=== PATIENT | female | born 1980 | race Caucasian/White ===

== ENCOUNTER 2016-05-24 08:35 | Emergency (ER) | payer OTHER ==
[~2016-05-24] VITALS: Wt 63.5 kg
[2016-05-24] MEDS ORDERED: ACETAMINOPHEN 500 MG TAB PO STA (09:22)
[2016-05-24 10:01] LABS: ADD SCAN DIFF NO
[2016-05-24 10:05] LABS: ADD UMIC YES; URINE BILIRUBIN (Dip) NEGATIVE (NEGATIVE); URINE BLOOD (Dip) 3+ (NEGATIVE); URINE COLOR LT. YELLOW (YELLOW); URINE GLUCOSE (Dip) NEGATIVE (NEGATIVE); URINE KETONES (Dip) NEGATIVE (NEGATIVE); URINE LEUKOCYTE ESTERASE (Dip) TRACE (NEGATIVE); URINE NITRITE (Dip) NEGATIVE (NEGATIVE); URINE TOTAL PROTEIN (Dip) TRACE (NEGATIVE); URINE UROBILINOGEN (Dip) 0.2 E.U./dL (0.1-1.0)
[2016-05-24 10:07] LABS: BASOPHILS % 0.4 % (0.0-2.0); EOSINOPHILS # 0.1 10^3/ul (0.0-0.5); EOSINOPHILS % 1.1 % (0.0-7.0); HEMOGLOBIN 14.5 g/dl (12.0-16.0); LYMPHOCYTES % 23.9 % (15.0-51.0); MEAN CORPUSCULAR HGB CONC 34.5 g/dl (32.0-37.0); MEAN CORPUSCULAR VOLUME 89.7 fl (82.0-101.0); MEAN PLATELET VOLUME 8.8 fl (7.4-10.4); MONOCYTE # 0.6 10^3/ul (0.3-0.9); MONOCYTES % 6.9 % (0.0-11.0); NEUTROPHIL # 5.6 10^3/ul (1.6-7.5); NEUTROPHILS % 67.5 % (39.0-77.0); PLATELET COUNT 413 10^3/UL (140-415); RED BLOOD COUNT 4.68 10^6/ul (4.20-5.40); RED CELL DISTRIBUTION WIDTH 12.3 % (11.5-14.5); WHITE BLOOD COUNT 8.3 10^3/ul (4.8-10.8)
--- NOTE | 2016-05-24 10:19 | ERD ---
ER Documentation Chief Complaint Date/Time DATE: 05/24/16 TIME: 10:18 Chief Complaint vag bleeding since ysterday 8 wks preg. no dysuria per pt,has mild ap HPI This is a 35-year-old female who presents to the emergency department today complaining of vaginal bleeding the past 2 days. Patient states she is approximately 9 weeks . States she has some crampy abdominal pain. Denies any fevers or chills, dysuria, nausea or vomiting. She has not taken any medication for the pain. States he has an appointment next month with her CEMETERY WARDEN. ROS All systems reviewed and are negative except as per history of present illness. Medications Home Meds Active Scripts Acetaminophen* (Tylophen*) 500 Mg Capsule, 1 CAP PO Q6H Y for PAIN AND OR ELEVATED TEMP, #30 CAP Prov:ANA MARLOW PA-C 05/24/16 PMhx/Soc Medical and Surgical Hx: pt denies Medical Hx, pt denies Surgical Hx Hx Alcohol Use: No Hx Substance Use: No Hx Tobacco Use: No Smoking Status: Never smoker Physical Exam Vitals Vital Signs Date Time Temp Pulse Resp B/P Pulse Ox O2 Delivery O2 Flow Rate FiO2 05/24/16 08:41 98.8 100 21 141/88 100 Physical Exam Const: No acute distress Head: Atraumatic Eyes: Normal Conjunctiva ENT: Normal External Ears, Nose and Mouth. Neck: Full range of motion..~ No meningismus. Resp: Clear to auscultation bilaterally Cardio: Regular rate and rhythm, no murmurs Abd: Soft, suprapubic tenderness non distended. Normal bowel sounds. No right lower quadrant pain. No left lower quadrant pain. Skin: No petechiae or rashes Back: No midline or flank tenderness Ext: No cyanosis, or edema Neur: Awake and alert Psych: Normal Mood and Affect Result Diagram: 05/24/16 0945 Results 24 hrs Laboratory Tests Test 05/24/16 09:35 05/24/16 09:45 Urine Color LT. YELLOW Urine Clarity SLIGHTLY CLOUDY Urine pH 6.0 Urine Specific [place] 1.025 Urine Ketones NEGATIVE Urine Nitrite NEGATIVE Urine Bilirubin NEGATIVE Urine Urobilinogen 0.2 E.U./dL Urine Leukocyte Esterase TRACE Urine Microscopic RBC >200/HPF Urine Microscopic WBC 5-10/HPF Urine Epithelial Cells MODERATE Urine Bacteria FEW Urine Hemoglobin 3+ Urine Glucose NEGATIVE% Urine Total Protein TRACE White Blood Count 8.310^3/ul Red Blood Count 4.6810^6/ul Hemoglobin 14.5g/dl Hematocrit 42.0% Mean Corpuscular Volume 89.7fl Mean Corpuscular Hemoglobin 31.0pg Mean Corpuscular Hemoglobin Concent 34.5g/dl Red Cell Distribution Width 12.3% Platelet Count 00319^3/UL Mean Platelet Volume 8.8fl Neutrophils % 67.5% Lymphocytes % 23.9% Monocytes % 6.9% Eosinophils % 1.1% Basophils % 0.4% Nucleated Red Blood Cells % 0.0/100WBC Neutrophils # 5.610^3/ul Lymphocytes # 2.010^3/ul Monocytes # 0.610^3/ul Eosinophils # 0.110^3/ul Basophils # 0.010^3/ul Nucleated Red Blood Cells # 0.010^3/ul Beta HCG, Quantitative 1830.2mIU/ml Current Medications Medications (Trade) Dose Ordered Sig/Matt Route PRN Reason Start Time Stop Time Status Last Admin Dose Admin Acetaminophen (Tylenol Tab) 500 mg ONCE STAT PO 05/24/16 09:22 05/24/16 09:24 DC 05/24/16 09:51 DIAGNOSTIC IMAGING REPORT Patient: MAITE PICKETT : 1980 Age: 35 Sex: F MR #: [id number] DOS: 05/24/16921 Ordering MD: ANA MARLOW PA-C Location: [facility] Room/Bed: PROCEDURE: US OB. CLINICAL INDICATION: Vaginal bleeding TECHNIQUE: Transabdominal and transvaginal views of the pelvis are available for review. COMPARISON: No prior studies are available for comparison. FINDINGS: There is a twin intrauterine gestation with the crown-rump length measuring 1.1 and 0.7 cm, corresponding to a gestational age of 7 weeks and 2 days and 6 weeks and 4 days. The heart tones are absent. There is a small amount of fluid in the lower endometrial canal. The right ovary measures 3.2 x 1.7 cm. The left ovary measures 3.3 x 2.2 cm. There is no free fluid. RPTAT: AA IMPRESSION: Twin intrauterine with an estimated gestational age of 7 weeks and 2 days and 6 weeks and 4-day, based on ultrasound measurements. No heart tones are present, suspicious for demise. A call report was made and the findings discussed with Ana Marlow Pa-c at 05/24/2016 10:30:48 AM. .Cain Moreno MD, MD Date Time Electronically viewed and signed by .Cain Moreno MD, MD on 05/24/2016 10: 32 .S/ CC: ANA MARLOW PA-C Procedures/MDM This a 35-year-old female who presents to the emergency department today for vaginal bleeding. Patient indicated she was approximately 9 weeks . She has not been seen here in this emergency department previously. Given the patient's complaints I did obtain a complete OB workup. Laboratory work shows no elevated white blood cell count. She is not anemic. Platelets are within normal limits. UA shows trace leukocyte esterase. Negative nitrites. Rh status B Positive Beta quant hCG 1830.2 Ultrasound shows twin intrauterine with an estimated gestational age of 7 weeks and 2 days and 6 weeks and 4 days based on ultrasound measurements. There are no heart tones present that are suspicious for demise. There is no free fluid. I received a call from Dr. Moreno in regards to the ultrasound findings. I have explained this to the patient. Patient was given Tylenol here in the emergency department. I will give her prescription for Tylenol for home. She has been instructed to follow-up with her CEMETERY WARDEN for repeat beta quant in 48 hours or return to the emergency department. I have explained to the patient that she may continue to have vaginal bleeding. At this time the patient is stable for discharge and outpatient management. Patient should follow up with their PCP in the next 1-2 days. They may return to the emergency department sooner for any persistent or worsening of symptoms. Patient and understood and agreed with the plan. I discussed the patient with Dr. Hester and he is in agreement with the plan. Departure Diagnosis: Primary Impression: Vaginal bleeding in patient at less than 20 weeks gestation Condition: Fair PROUSE,ANA M. PA-C May 24, 2016 10:19
[2016-05-24 10:26] LABS: BACTERIA,URINE FEW; URINE RBCS >200 /HPF ([, 0])
--- NOTE | 2016-05-24 10:33 | RADRPT ---
PROCEDURE: US OB. CLINICAL INDICATION: Vaginal bleeding TECHNIQUE: Transabdominal and transvaginal views of the pelvis are available for review. COMPARISON: No prior studies are available for comparison. FINDINGS: There is a twin intrauterine gestation with the crown-rump length measuring 1.1 and 0.7 cm, correspo nding to a gestational age of 7 weeks and 2 days and 6 weeks and 4 days. The heart tones are absent. There is a small amount of fluid in the lower endometrial canal. The right ovary measures 3.2 x 1.7 cm. The left ovary measures 3.3 x 2.2 cm. There is no free fluid. RPTAT: AA IMPRESSION: Twin intrauterine with an estimated gestational age of 7 weeks and 2 days and 6 weeks and 4-day, based on ultrasound measurements. No heart tones are present, suspicious for demise. A call report was made and the findings discussed with Ana Hale Pa-c at 05/24/2016 10:30:48 AM. .Cain Moreno MD, Date Time Electronically viewed and signed by .Cain Moreno MD, on 05/24/2016 10:32 .S/
[2016-05-24] MEDS ORDERED: ACET500C5 PO (11:00)
[2016-05-24 11:15] VITALS: BP 132/88; PULSE 88; RESP 20; TEMP 98.8
== END 2016-05-24 11:15 | disposition home or self-care (01) ==
LOC: FTE 08:35
DX: O20.9 Hemorrhage in early pregnancy, unspecified (principal); Z3A.01 Less than 8 weeks gestation of pregnancy
CPT/HCPCS: 76801; 76817; 81001; 84702; 85025; 86900; 86901; Z7610; 36415; 81003

== ENCOUNTER 2016-11-13 14:06 | Emergency (ER) | payer OTHER ==
[~2016-11-13] VITALS: Ht 157.5 cm; Wt 65.0 kg
[~2016-11-13 14:06] MED LIST: ACET500C5 PO
[2016-11-13 14:08] VITALS: Ht 157.5 cm; Wt 65.0 kg
[2016-11-13] MEDS ORDERED: ACETAMINOPHEN 500 MG TAB PO STA (15:35)
[2016-11-13 16:17] LABS: BASOPHIL # 0.1 10^3/ul (0.0-0.1); BASOPHILS % 0.7 % (0.0-2.0); EOSINOPHILS # 0.1 10^3/ul (0.0-0.5); EOSINOPHILS % 1.4 % (0.0-7.0); HEMATOCRIT 42.7 % (37.0-47.0); LYMPHOCYTES # 2.3 10^3/ul (0.8-2.9); LYMPHOCYTES % 30.2 % (15.0-51.0); MEAN CORPUSCULAR HEMOGLOBIN 31.3 pg (29.0-33.0); MEAN CORPUSCULAR HGB CONC 35.1 g/dl (32.0-37.0); MEAN CORPUSCULAR VOLUME 89.1 fl (82.0-101.0); MEAN PLATELET VOLUME 8.5 fl (7.4-10.4); MONOCYTE # 0.7 10^3/ul (0.3-0.9); MONOCYTES % 9.2 % (0.0-11.0); NEUTROPHIL # 4.5 10^3/ul (1.6-7.5); NEUTROPHILS % 58.1 % (39.0-77.0); PLATELET COUNT 361 10^3/UL (140-415); RED BLOOD COUNT 4.79 10^6/ul (4.20-5.40); RED CELL DISTRIBUTION WIDTH 12.1 % (11.5-14.5); WHITE BLOOD COUNT 7.7 10^3/ul (4.8-10.8)
[2016-11-13 16:25] LABS: ADD UMIC NO; UR ASCORBIC ACID NEGATIVE (NEGATIVE); UR BACTERIA FEW /HPF (NONE SEEN); UR BILIRUBIN (Dip) NEGATIVE (NEGATIVE); UR BLOOD (Dip) NEGATIVE (NEGATIVE); UR CLARITY SLIGHTLY CLOUDY (CLEAR); UR COLOR YELLOW (YELLOW); UR GLUCOSE (Dip) NEGATIVE (NEGATIVE); UR KETONES (Dip) NEGATIVE (NEGATIVE); UR LEUKOCYTE ESTERASE (Dip) NEGATIVE Leu/ul (NEGATIVE); UR MUCUS FEW /HPF (NONE SEEN); UR NITRITE (Dip) NEGATIVE (NEGATIVE); UR RBC 1 /HPF (0-5); UR SPECIFIC GRAVITY (Dip) 1.016 (1.003-1.030); UR SQUAMOUS EPITHELIAL CELL FEW /HPF (FEW); UR TOTAL PROTEIN (Dip) NEGATIVE (NEGATIVE); UR UROBILINOGEN (Dip) NEGATIVE (NEGATIVE)
--- NOTE | 2016-11-13 16:25 | RADRPT ---
PROCEDURE: US OB. CLINICAL INDICATION: Vaginal bleeding TECHNIQUE: Transabdominal and transvaginal views of the pelvis are available for review. COMPARISON: No prior studies are available for comparison. FINDINGS: There is a single intrauterine gestation with the crown-rump length measuring 0.4 cm, corresponding to a gestational age of 6 weeks and 1 day. The heart rate is noted at 83 bpm. There is a 1.6 x 0.5 cm hypoechoic area adjacent to the gestational sac. The ovaries are normal in size and echogenicity. Normal Doppler flow is identified in both ovaries. The right ovary measures 3.7 x 2.7 x 2.7 cm. There is a 1.7 cm simple cyst in the right ovary. The left ovary measures 2.7 x 1.6 x 2.3 cm. There is a trace amount of free fluid in the pelvis. RPTAT: AA IMPRESSION: Single intrauterine with an estimated gestational age of 6 weeks and 1 day, based on ultra sound measurements. ISMAEL based on ultrasound measurements is 07/07/2017. Questionable positive heart tones versus bradycardia. Close follow-up is needed. Small area of subchorionic hemorrhage. .Cain Moreno MD, MD Date Time Electronically viewed and signed by .Cain Moreno MD, on 11/13/2016 16:24 .S/
--- NOTE | 2016-11-13 16:51 | ERD ---
ER Documentation Chief Complaint Date/Time DATE: 11/13/16 TIME: 16:51 Chief Complaint VAGINAL SPOTTING X 3 DAYS, 6 WEEKS HPI This is a 36-year-old female who presents to the emergency department today for complaints of brown discharge for the past 3-4 days and mild crampy abdominal pain. Patient states that she is approximately 7-8 weeks . States she does have some dysuria. She has not taken a medication for pain. Denies any fevers or chills. States thatShe has not yet seen a business continuity coordinator because she changed doctors. States that she previously had a miscarriage a few months ago. ROS All systems reviewed and are negative except as per history of present illness. Medications Home Meds Active Scripts Acetaminophen* (Tylophen*) 500 Mg Capsule, 1 CAP PO Q6H Y for PAIN AND OR ELEVATED TEMP, #30 CAP Prov:GISSELLE MARLOW PA-C 11/13/16 Acetaminophen* (Tylophen*) 500 Mg Capsule, 1 CAP PO Q6H Y for PAIN AND OR ELEVATED TEMP, #30 CAP Prov:GISSELLE MARLOW PA-C 05/24/16 Allergies Allergies: Coded Allergies: No Known Allergy (Unverified , 11/13/16) PMhx/Soc History of Surgery: No Anesthesia Reaction: No Hx Neurological Disorder: No Hx Respiratory Disorders: No Hx Cardiac Disorders: No Hx Psychiatric Problems: No Hx Miscellaneous Medical Probl: No Hx Alcohol Use: No Hx Substance Use: No Hx Tobacco Use: No Physical Exam Vitals Vital Signs Date Time Temp Pulse Resp B/P Pulse Ox O2 Delivery O2 Flow Rate FiO2 11/13/16 14:08 98.2 104 19 144/93 100 Physical Exam Const: NAD Head: Atraumatic Eyes: Normal Conjunctiva ENT: Normal External Ears, Nose and Mouth. Neck: Full range of motion..~ No meningismus. Resp: Clear to auscultation bilaterally Cardio: Regular rate and rhythm, no murmurs Abd: Soft, non tender, non distended. Normal bowel sounds. No tenderness McBurney's. Skin: No petechiae or rashes Back: No midline or flank tenderness Ext: No cyanosis, or edema Neur: Awake and alert Psych: Normal Mood and Affect Result Diagram: 11/13/16 1610 Results 24 hrs Laboratory Tests Test 11/13/16 15:50 11/13/16 16:10 Urine Color YELLOW Urine Clarity SLIGHTLY CLOUDY Urine pH 8.0 Urine Specific [place] 1.016 Urine Ketones NEGATIVEmg/dL Urine Nitrite NEGATIVEmg/dL Urine Bilirubin NEGATIVEmg/dL Urine Urobilinogen NEGATIVEmg/dL Urine Leukocyte Esterase NEGATIVELeu/ul Urine Microscopic RBC 1/HPF Urine Microscopic WBC 1/HPF Urine Squamous Epithelial Cells FEW/HPF Urine Bacteria FEW/HPF Urine Mucus FEW/HPF Urine Hemoglobin NEGATIVEmg/dL Urine Glucose NEGATIVEmg/dL Urine Total Protein NEGATIVEmg/dl White Blood Count 7.710^3/ul Red Blood Count 4.7910^6/ul Hemoglobin 15.0g/dl Hematocrit 42.7% Mean Corpuscular Volume 89.1fl Mean Corpuscular Hemoglobin 31.3pg Mean Corpuscular Hemoglobin Concent 35.1g/dl Red Cell Distribution Width 12.1% Platelet Count 24672^3/UL Mean Platelet Volume 8.5fl Neutrophils % 58.1% Lymphocytes % 30.2% Monocytes % 9.2% Eosinophils % 1.4% Basophils % 0.7% Nucleated Red Blood Cells % 0.0/100WBC Neutrophils # 4.510^3/ul Lymphocytes # 2.310^3/ul Monocytes # 0.710^3/ul Eosinophils # 0.110^3/ul Basophils # 0.110^3/ul Nucleated Red Blood Cells # 0.010^3/ul Beta HCG, Quantitative 23990.0mIU/ml Current Medications Medications (Trade) Dose Ordered Sig/Matt Route PRN Reason Start Time Stop Time Status Last Admin Dose Admin Acetaminophen (Tylenol Tab) 500 mg ONCE STAT PO 11/13/16 15:35 11/13/16 15:36 DC 11/13/16 16:29 DIAGNOSTIC IMAGING REPORT Patient: MAITE PICKETT : 1980 Age: 36 Sex: F MR #: [id number] DOS: 11/13/16 1535 Ordering MD: GISSELLE MARLOW PA-C Location: [facility] Room/Bed: PROCEDURE: US OB. CLINICAL INDICATION: Vaginal bleeding TECHNIQUE: Transabdominal and transvaginal views of the pelvis are available for review. COMPARISON: No prior studies are available for comparison. FINDINGS: There is a single intrauterine gestation with the crown-rump length measuring 0.4 cm, corresponding to a gestational age of 6 weeks and 1 day. The heart rate is noted at 83 bpm. There is a 1.6 x 0.5 cm hypoechoic area adjacent to the gestational sac. The ovaries are normal in size and echogenicity. Normal Doppler flow is identified in both ovaries. The right ovary measures 3.7 x 2.7 x 2.7 cm. There is a 1.7 cm simple cyst in the right ovary. The left ovary measures 2.7 x 1.6 x 2.3 cm. There is a trace amount of free fluid in the pelvis. RPTAT: AA IMPRESSION: Single intrauterine with an estimated gestational age of 6 weeks and 1 day, based on ultrasound measurements. ISMAEL based on ultrasound measurements is 07/07/2017. Questionable positive heart tones versus bradycardia. Close follow- up is needed. Small area of subchorionic hemorrhage. .Cain Moreno MD, MD Date Time Electronically viewed and signed by .Cain Moreno MD, MD on 11/13/2016 16: 24 .S/ CC: GISSELLE MARLOW PA-C Procedures/[facility] This is a A2 36-year-old female who presents to the emergency department today complaining of vaginal bleeding. Patient states she is approximately 7-8 weeks . Upon review of patient's medical records I did actually see this patient back in April of this year for similar complaints of vaginal bleeding and . At that time patient had twin gestation with no heart tones and demise. Given patient's complaints today I did obtain a complete OB workup. Laboratory work shows no elevated white blood cell count. Patient is not anemic. UA is negative for infection Beta quant hCG 71903 Rh status B+ Ultrasound shows a single intrauterine with an estimated gestational age of 6 weeks and 1 day. Estimated date of delivery is July 07, 2017. There is normal Doppler flow identified in both ovaries. The heart rate is noted at 83 bpm and this is question of possible heart tones versus bradycardia. There is a small area of subchorionic hemorrhage. Patient symptoms at this time is consistent with vaginal bleeding in early pregnancyPossibly from her subchorionic hemorrhage. Other differentials to consider early normal versus early failed versus placenta previa. Patient is afebrile and otherwise well-appearing. I have low suspicion for ectopic , tubo ovarian abscess, ovarian torsion. Given patient's low heart tones I did place a call to the laborist renewable energy division manager Dr. Granados, and she has recommended a repeat ultrasound in 2 weeks. I have explained the results to the patient. I have explained to the patient that they need to follow-up in With her business continuity coordinator in 2 weeks for a repeat ultrasound. They do not need to return for a repeat beta quant as she has an IUP At this time the patient is stable for discharge and outpatient management. Patient should follow up with their PCP in the next 1-2 days. They may return to the emergency department sooner for any persistent or worsening of symptoms. Patient understood and agreed with the plan. Departure Diagnosis: Primary Impression: Vaginal bleeding in patient at less than 20 weeks gestation Condition: GISSELLE Stephens PA-C Nov 13, 2016 16:51
[2016-11-13] MEDS ORDERED: ACET500C5 PO (18:24)
[2016-11-13 18:36] VITALS: BP 131/86; PULSE 76; RESP 18
== END 2016-11-13 18:38 | disposition home or self-care (01) ==
LOC: FTE 14:06
DX: O20.9 Hemorrhage in early pregnancy, unspecified (principal); R10.2 Pelvic and perineal pain; Z3A.01 Less than 8 weeks gestation of pregnancy
CPT/HCPCS: 36415; 76801; 76817; 81001; 84702; 85025; 86900; 86901; Z7502; Z7610; 81003

== ENCOUNTER 2016-12-20 16:16 | Day surgery (SDC) | payer OTHER ==
[2016-12-20] VITALS (13 sets, daily range): BP systolic 111–137; BP diastolic 47–96; PULSE 80–98; RESP 12–22; Ht 154.9 cm; Wt 65.7 kg
[~2016-12-20] VITALS: Ht 154.9 cm; Wt 65.7 kg
[2016-12-20] MEDS ORDERED: FENTAnyl 50 MCG/ML VIAL IV PRN (17:00)
[2016-12-20] MEDS ORDERED: PROCHLORPERAZINE 10 MG INJ IV PRN (17:00)
[2016-12-20] MEDS ORDERED: ONDANSETRON 4 MG INJ IV PRN (17:00)
[2016-12-20] MEDS ORDERED: OXYCODONE/ACETAMINOPHEN (5/325) TAB PO PRN ×2 (17:00)
[2016-12-20] MEDS ORDERED: TRIMETHOBENZAMIDE 100 MG/ML VIAL IM PRN (17:00)
[2016-12-20] MEDS ORDERED: DIPHENHYDRAMINE 50 MG INJ IV PRN (17:00)
[2016-12-20] MEDS ORDERED: MEPERIDINE 25 MG INJ IV PRN (17:00)
[2016-12-20] MEDS ORDERED: HYDROmorphONE (0.2 MG/ML) 10ML SYG IV PRN ×2 (17:00)
[2016-12-20] MEDS ORDERED: LIDOCAINE 2% (SDV) 5 ML INJ ONE (19:24)
[2016-12-20] MEDS ORDERED: PROPOFOL 20 ML ONE (19:24)
[2016-12-20] MEDS ORDERED: FENTAnyl 50 MCG/ML VIAL ONE (19:25)
[2016-12-20] MEDS ORDERED: MIDAZOLAM 1 MG/ML 2 ML INJ ONE (19:25)
[2016-12-20] MEDS ORDERED: CEFAZOLIN 1 GM INJ ONE (19:37)
[2016-12-20] MEDS ORDERED: DEXAMETHASONE 4 MG/ML 1 ML INJ ONE (19:38)
[2016-12-20] MEDS ORDERED: ONDANSETRON 4 MG INJ ONE (19:38)
[2016-12-20] MEDS ORDERED: METOCLOPRAMIDE 10 MG INJ ONE (19:38)
[2016-12-20] MEDS ORDERED: PHENYLephrine (100 MCG/ML) 5ML SYG ONE (19:47)
[2016-12-20] MEDS ORDERED: EPHEDrine SULFATE 50 MG/5 ML SYG ONE (19:58)
[2016-12-20] MEDS ORDERED: KETOROLAC 30 MG INJ ONE (20:05)
[2016-12-20] MEDS ORDERED: OXYTOCIN 10 UNIT INJ ONE (20:06)
--- NOTE | 2016-12-20 20:46 | HPN ---
Date/Time of Note Date/Time of Note DATE: 12/20/16 TIME: 20:46 Interval H&P Admission Note Pt. seen H&P reviewed: No system changes STU PENN MD Dec 20, 2016 20:46
--- NOTE | 2016-12-20 20:49 | SIPON ---
Date/Time of Note Date/Time of Note DATE: 12/20/16 TIME: 20:46 Operative Report Preoperative Diagnosis missed Postoperative Diagnosis see path report Operation/Procedure Performed suction curettage Surgeon see signature line assistant director of nursing none Anesthesia: general Estimated blood loss: 50 - 100 ml's Transfusion Required none Specimen POC part of poc in normal saline for chomosomal analysis sent (medical assistant cardiology : flikdate) Grafts/Implants none Complications none STU PENN MD Dec 20, 2016 20:49
--- NOTE | 2016-12-20 20:49 | SIPON ---
Date/Time of Note Date/Time of Note DATE: 12/20/16 TIME: 20:46 Operative Report Preoperative Diagnosis missed Postoperative Diagnosis see path report Operation/Procedure Performed suction curettage Surgeon see signature line back office medical assistant none Anesthesia: general Estimated blood loss: 50 - 100 ml's Transfusion Required none Specimen POC part of poc in normal saline for chomosomal analysis sent (global clinical leader : [employer]) Grafts/Implants none Complications none STU PENN MD Dec 20, 2016 20:49
--- NOTE | 2016-12-20 20:49 | SIPON ---
Date/Time of Note Date/Time of Note DATE: 12/20/16 TIME: 20:46 Operative Report Preoperative Diagnosis missed Postoperative Diagnosis see path report Operation/Procedure Performed suction curettage Surgeon see signature line social media assistant none Anesthesia: general Estimated blood loss: 50 - 100 ml's Transfusion Required none Specimen POC part of poc in normal saline for chomosomal analysis sent (pressing department supervisor : [employer]) Grafts/Implants none Complications none STU PENN MD Dec 20, 2016 20:49
--- NOTE | 2016-12-20 20:51 | PD.PPDC ---
MINE ENGINEERING SUPERVISOR Discharge Instruction Diagnosis Final Diagnosis: s/p suction curettage for missed Condition Patient Condition: Stable Diet Diet: Resume Regular Diet Activity/Restrictions Activity: May Shower Restrictions: No Sexual Activity Nothing in the Vagina No [place] No Tampons, douche Follow-up Follow-up with Physician: 2, Week/Weeks Return to clinic for PUBLIC RELATIONS PROFESSIONAL Instructions: Fever greater than 101 Chills Worsening abdominal pain Excessive Vaginal Bleeding More than 2 pads per hour Unable to tolerate diet STU PENN MD Dec 20, 2016 20:51
--- NOTE | 2016-12-20 20:51 | PD.PPDC ---
APPAREL MERCHANDISER Discharge Instruction Diagnosis Final Diagnosis: s/p suction curettage for missed Condition Patient Condition: Stable Diet Diet: Resume Regular Diet Activity/Restrictions Activity: May Shower Restrictions: No Sexual Activity Nothing in the Vagina No [place] No Tampons, douche Follow-up Follow-up with Physician: 2, Week/Weeks Return to clinic for BOARD RUNNER Instructions: Fever greater than 101 Chills Worsening abdominal pain Excessive Vaginal Bleeding More than 2 pads per hour Unable to tolerate diet STU PENN MD Dec 20, 2016 20:51
--- NOTE | 2016-12-20 20:51 | PD.PPDC ---
MEDICAL TECHNOLOGIST MICROBIOLOGY Discharge Instruction Diagnosis Final Diagnosis: s/p suction curettage for missed Condition Patient Condition: Stable Diet Diet: Resume Regular Diet Activity/Restrictions Activity: May Shower Restrictions: No Sexual Activity Nothing in the Vagina No [place] No Tampons, douche Follow-up Follow-up with Physician: 2, Week/Weeks Return to clinic for INJECTION MOLDING TECHNICIAN Instructions: Fever greater than 101 Chills Worsening abdominal pain Excessive Vaginal Bleeding More than 2 pads per hour Unable to tolerate diet STU PENN MD Dec 20, 2016 20:51
--- NOTE | 2016-12-21 06:08 | OPR ---
DATE OF OPERATION: 12/20/2016 PREOPERATIVE DIAGNOSIS: Missed . POSTOPERATIVE DIAGNOSIS: See pathological report. OPERATION PERFORMED: Suction curettage. ANESTHESIA: General. ANESTHESIOLOGIST: Dr. Oliveros. SURGEON: Tristan Petit MD. ESTIMATED BLOOD LOSS: Approximately 50 mL. PROCEDURE: Under appropriate induction of general anesthesia, the patient was placed in dorsal lith otomy position. Perineal area and vagina wall was prepped and draped in usual aseptic manner. On i nspection, external genitalia revealed no gross abnormality. Bimanual examination, uterus felt to b e approximately 10 weeks of gestational size, soft, no irregularity on the outline. There is no pal pable adnexal pathology. Weighted speculum introduced and cervix identified which was parous appear ing. Anterior lip of the cervix was grasped with a single tooth tenaculum. There is mucus noted an d the cavity was sounded, which was 10 cm in depth, os was dilated gradually, a size #8 suction cure tte was introduced into the uterine cavity. Entire uterine cavity was suctioned in all directions o btaining some tissue. In the middle of obtaining tissue, the suction was stopped and the tissue was obtained from the suction for the chromosome analysis. In addition, a curretage was also sent for tissue culture for chromosome analysis. Then, procedure was continued and suction curettage was don e in all directions with good obtaining additional tissue followed by a sharp curette in all directi ons with a scanty amount of tissue, which was also sent to pathology. Confirmation of the cavity wa s emptiness and 10 units of Pitocin given and reexamined the uterus, which was forming down. No sig nificant bleeding noted. The patient was sent to recovery room in stable condition. Final sponge c ount was correct and all instruments were out of the operative field. Dictated By: TRISTAN RANDALL/DUNCAN Conf#: [id number] DID#: [id number]
== END 2016-12-20 21:26 | disposition home or self-care (01) ==
LOC: SDS 16:16
PROVIDERS: ATTEND Obstetrics & Gynecology
DX: O02.1 Missed abortion (principal); E66.9 Obesity, unspecified
CPT/HCPCS: 59820; 80053; 81003; 85025; 85610; 85730; 86900; 86901; 88305; J0690; J1100; J1885; J2250; J2370; J2405; J2590; J2765; J3010; Z7512; Z7610; 88261